=== PATIENT | female | born 1990 | race Caucasian/White ===

== ENCOUNTER 2017-11-05 08:30 | Observation (INO) ==
[2017-11-05 09:00] LABS: Bilirubin,Urine Negative (Negative); Blood,Urine Large (Negative); Clarity,Urine Cloudy (Clear); Color,Urine Yellow (Yellow); Glucose,Urine (UA) Normal (Normal); Ketones,Urine Negative (Negative); Leukocyte Esterase,Urine Moderate (Negative); Nitrite,Urine Negative (Negative); PH,Urine 6.5 pH Units (5.0-8.0); Protein,Urine Negative (Neg-Trace); Specific Gravity,Urine 1.027 (1.010-1.025); Urobilinogen,Urine Normal (Normal)
[2017-11-05 09:02] LABS: Bacteria,Urine Few per hpf (None-Few); Hyaline Casts,Urine None Seen per lpf (None-Few); RBC,Urine TNTC per hpf (0-3); Squamous Epithelial Cell,Urine Many per lpf (None-Few)
[2017-11-05] MEDS ORDERED: *HR* Nalbuphine 20 MG/ML AMPUL IVP ONE (09:16)
[2017-11-05] MEDS ORDERED: Ringers Solution, Lactated 1,000 ML ONE (09:19)
[2017-11-05] MEDS ORDERED: *HR* Nalbuphine 20 MG/ML AMPUL ONE (09:19)
[2017-11-05] MEDS ORDERED: Ringers Solution, Lactated 1,000 ML IVC SCH (09:30)
[2017-11-05 09:45] LABS: Basophils # 0.1 K/mcL (0.0-0.2); Basophils % 0.5 %; Eosinophils # 0.1 K/mcL (0.0-0.6); Eosinophils % 0.7 %; Hemoglobin 12.3 g/dL (11.5-15.4); Immature Granulocytes % 1.5 % (0-4); Lymphocytes # 1.4 K/mcL (0.6-4.6); Lymphocytes % 13.7 %; Mean Corpuscular HGB Conc 34.2 g/dL (31.6-35.5); Mean Corpuscular Hemoglobin 30.5 pg (28.0-33.3); Mean Corpuscular Volume 89.3 fL (83.0-100.0); Mean Platelet Volume 10.6 fL (9.4-12.4); Monocytes # 0.6 K/mcL (0.0-1.3); Monocytes % 5.4 %; Neutrophils # 8.1 K/mcL (1.6-8.9); Platelet Count 188 K/mcL (140-400); Red Blood Count 4.03 M/mcL (3.82-4.97); Segmented Neutrophils % 78.2 %
--- NOTE | 2017-11-05 09:59 | OB/GYN History & Physical ---
Date of Encounter: 11/05/17 Time of Encounter: 09:56 Assessment and Plan (1) Left flank pain Current visit: Yes Status: Acute ultrasound to rule out kidney stone ua (2) 29 weeks gestation of Current visit: Yes Status: Acute admit for observation History of Present Illness Chief complaint: left flank and lower abdominal pain HPI: Ms. Orona is a 27 year old female at 29w2d presents to labor and delivery with complaints of left flank pain and lower abdominal pain that started around 0600. Patient denies contraction, LOF, VB, dysuria, urgency, hematuria or urinary frequency. Patient reports +FM. Patient rated pain 10/10. Past Med Surg Social Fam HX - Past Medical History Source: patient Medical history: no medical history Psychiatric history: depression - Past Surgical History Surgical History: other - Social History Smoking Status: Never smoker Smokeless Tobacco Status: No Alcohol use: none Drug use: none Occupational status: unemployed Current living situation: Home - Independent Activity Level: Independent ambulation Recent Out of Country Travel Within the Last 8 Weeks: No Exposure or Possible Exposure to Illness During Travel: No - Family History Mother Living Status: Still Living Hx Family Endocrine Disorder: Yes (Diabetes) Hx Family Psychosocial Disorders: Yes (schizophrenia, bipolar) Obstetrical History - Pregnancies : 5 Para: 3 Livin Medications and Allergies Vit Calc,Iron,Folic [ Vitamins] 1 each PO 11/05/17 [History] 3 Allergy/AdvReac Type Severity Reaction Status Date / Time No Known Allergies Allergy Verified 05/20/16 08:21 Review of System OB - Constitutional Constitutional ROS IM: no chills, no fever(s), no headache(s) - Cardiovascular Cardiovascular: no chest pain, no edema, no palpitations, no syncope - Respiratory Respiratory: no cough - Gastrointestinal Gastrointestinal: no constipation, no cramping, no diarrhea, no heartburn, no nausea, no vomiting - Genitourinary Genitourinary: flank pain (left side only), no abnormal vaginal bleeding, no difficulty urinating, no dysuria, no hematuria, no urinary frequency, no urinary hesitancy, no urinary incontinence Exam - Constitutional Constitutional: well developed, well nourished, average body habitus - HEENT HEENT: Normocephaly, Mucus Membranes Moist - Neck Neck exam: full ROM, normal inspection, supple - Lungs Respiratory exam: CTAB - Cardiovascular Cardiovascular exam: RRR, +S1, +S2 - Abdomen Abdomen: Present: bowel sounds normal, gravid, non tender - Extremities Extremities exam: full ROM, normal inspection Deep Tendon Reflex Grade: 2+ Normal - Uterus Uterus exam: Present: normal size, normal contour - Anus/Rectum Anus/Rectum: Present: normal perianal skin - Comments Comments: FHr 140 bpm , no contractions noted Results Result Diagrams: 11/05/17 09:30 Abnormal lab results Urine Clarity Cloudy (Clear) A 11/05/17 08:51 Ur Specific [place] 1.027 (1.010-1.025) H 11/05/17 08:51 Urine Blood Large (Negative) H 11/05/17 08:51 Ur Leukocyte Esterase Moderate (Negative) H 11/05/17 08:51 Urine Microscopic RBC TNTC per hpf (0-3) H 11/05/17 08:51 Urine Microscopic WBC 5-15 per hpf (0-3) H 11/05/17 08:51 Ur Squamous Epith Cells Many per lpf (None-Few) H 11/05/17 08:51 All other labs normal. - VTE Reasons for not Prescribing Prophylaxis: Treatment not Indicated - Low risk for VTE
[2017-11-05 10:41] LABS: Amphetamine Screen,Urine Negative ng/mL (Cutoff=1000); Barbiturate Screen,Urine Negative ng/mL (Cutoff=200); Benzodiazepines Screen,Urine Negative ng/mL (Cutoff=200); Cannabinoid Screen,Urine Negative ng/mL (Cutoff = 50); Cocaine Screen,Urine Negative ng/mL (Cutoff= 300); Opiate Screen,Urine Negative ng/mL (Cutoff=300); Phencyclidine Screen,Urine Negative ng/mL (Cutoff=25)
[2017-11-05] MEDS ORDERED: Ondansetron 4 MG/2 ML VIAL IM ONE (11:23)
[2017-11-05] MEDS ORDERED: cefTRIAXone 2,000 MG in Water for inj. (sterile) 20 ML 20 ML IVP ONE (11:43)
[2017-11-05] MEDS ORDERED: *HR* HYDROcodone/Acet 5/325 mg TABLET PO PRN (13:38)
--- NOTE | 2017-11-05 16:17 | Discharge Summary ---
Date of Encounter: 11/05/17 Time of Encounter: 16:16 - Discharge Diagnosis (1) Left flank pain Priority: Secondary Status: Acute Comments: Possible ureteral stone spoke with Dr. Branch who recommends pain management, IF patient is not controlled with pain medication consider MRI and transfer to [facility] Will continue Keflex 100mg po BID x 7 days (2) 29 weeks gestation of Priority: Primary Status: Acute Comments: admitted for observation - Discharge Medications Prescriptions: HYDROcodone/Acet 5/325 mg [[place] 5-325 mg] 1 tab PO Q4HR PRN #15 tablet PRN Reason: Moderate Pain Ondansetron ODT [Zofran ODT] 4 mg SL Q6HR #20 tab.rapdis Cephalexin [Keflex] 1,000 mg PO BID 7 Days #28 capsule Home Medications: Cephalexin [Keflex] 1,000 mg PO BID 7 Days #28 capsule 11/05/17 [Rx] HYDROcodone/Acet 5/325 mg [[place] 5-325 mg] 1 tab PO Q4HR PRN #15 tablet [Rx] Ondansetron ODT [Zofran ODT] 4 mg SL Q6HR #20 tab.rapdis 11/05/17 [Rx] Vit Calc,Iron,Folic [ Vitamins] 1 each PO 11/05/17 [History] Allergies/Adverse Reactions: 3 Allergy/AdvReac Type Severity Reaction Status Date / Time No Known Allergies Allergy Verified 05/20/16 08:21 Data Procedures and tests throughout hospitalization: Laboratory Tests 11/05/17 11/05/17 11/05/17 08:51 08:51 09:30 WBC 10.3 RBC 4.03 Hgb 12.3 Hct 36.0 MCV 89.3 MCH 30.5 MCHC 34.2 RDW 13.0 Plt Count 188 MPV 10.6 Immature Gran % 1.5 Seg Neutrophils % 78.2 Lymphocytes % 13.7 Monocytes % 5.4 Eosinophils % 0.7 Basophils % 0.5 Neutrophils # 8.1 Lymphocytes # 1.4 Monocytes # 0.6 Eosinophils # 0.1 Basophils # 0.1 Urine Color Yellow Urine Clarity Cloudy A Urine pH 6.5 Ur Specific [place] 1.027 H Urine Protein Negative Urine Glucose (UA) Normal Urine Ketones Negative Urine Blood Large H Urine Nitrite Negative Urine Bilirubin Negative Urine Urobilinogen Normal Ur Leukocyte Esterase Moderate H Urine Microscopic RBC TNTC H Urine Microscopic WBC 5-15 H Ur Squamous Epith Cells Many H Urine Bacteria Few Hyaline Casts None Seen Ur Culture Indicated? NO. Urine Opiates Screen Negative Ur Barbiturates Screen Negative Ur Phencyclidine Scrn Negative Ur Amphetamines Screen Negative U Benzodiazepines Scrn Negative Urine Cocaine Screen Negative U Marijuana (THC) Screen Negative Labs on day of discharge: Labs from last 24 hours 11/05/17 11/05/17 11/05/17 09:30 08:51 08:51 WBC 10.3 RBC 4.03 Hgb 12.3 Hct 36.0 MCV 89.3 MCH 30.5 MCHC 34.2 RDW 13.0 Plt Count 188 MPV 10.6 Immature Gran % 1.5 Seg Neutrophils % 78.2 Lymphocytes % 13.7 Monocytes % 5.4 Eosinophils % 0.7 Basophils % 0.5 Neutrophils # 8.1 Lymphocytes # 1.4 Monocytes # 0.6 Eosinophils # 0.1 Basophils # 0.1 Urine Color Yellow Urine Clarity Cloudy A Urine pH 6.5 Ur Specific [place] 1.027 H Urine Protein Negative Urine Glucose (UA) Normal Urine Ketones Negative Urine Blood Large H Urine Nitrite Negative Urine Bilirubin Negative Urine Urobilinogen Normal Ur Leukocyte Esterase Moderate H Urine Microscopic RBC TNTC H Urine Microscopic WBC 5-15 H Ur Squamous Epith Cells Many H Urine Bacteria Few Hyaline Casts None Seen Ur Culture Indicated? NO. Urine Opiates Screen Negative Ur Barbiturates Screen Negative Ur Phencyclidine Scrn Negative Ur Amphetamines Screen Negative U Benzodiazepines Scrn Negative Urine Cocaine Screen Negative U Marijuana (THC) Screen Negative - Impressions ITS Impressions Retroperitoneum Ultrasound 11/05/17 10:15 IMPRESSION: 1. Mild left hydronephrosis. Differential considerations include ureteral stone or hydronephrosis related to . 2. Normal right kidney and bladder. 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 Patient educated on signs and symptoms to report. [facility] report reviewed prior to discharge. Time Attestation: Total time spent providing and/or coordinating discharge services: Time Spent: Less than 30 minutes Exam - Constitutional General appearance IM: A&O X 3, pleasant, answers questions appropriately (FHR) - Other Additional findings: FHR 150bpm appropriate for gestational age - VTE Reasons for not Prescribing Prophylaxis: Treatment not Indicated - Low risk for VTE
== END 2017-11-05 16:36 | disposition home or self-care (01) ==
LOC: 1NENULAB
PROVIDERS: ADMIT Obstetrics & Gynecology; ATTEND Obstetrics & Gynecology

== ENCOUNTER 2022-05-26 07:59 | Inpatient (IN) ==
[2022-05-26] MEDS ORDERED: Naloxone 0.4 MG/ML INJ IVP PRN (08:12)
[2022-05-26] MEDS ORDERED: Famotidine 20 MG/2 ML VIAL IVP PRN (08:12)
[2022-05-26] MEDS ORDERED: Metoclopramide 10 MG/2 ML VIAL IVP PRN (08:12)
[2022-05-26] MEDS ORDERED: miSOPROStoL 25 MCG TABLET PO PRN (08:14)
[2022-05-26] MEDS ORDERED: Ringers Solution, Lactated 1,000 ML ONE (09:05)
[2022-05-26] MEDS ORDERED: Ringers Solution, Lactated 500 ML IVC ONE (09:11)
[2022-05-26] MEDS ORDERED: Ringers Solution, Lactated 1,000 ML IVC SCH (09:15)
[2022-05-26] MEDS ORDERED: Oxytocin 30 UNIT/503 ML BAG IVC SCH (09:15)
[2022-05-26 09:45] LABS: Basophils % 0.5 %; Eosinophils # 0.2 K/mcL (0.0-0.6); Eosinophils % 1.7 %; Hematocrit 37.2 % (35.3-44.9); Hemoglobin 12.9 g/dL (11.5-15.4); Immature Granulocytes % 0.9 % (0-4); Lymphocytes # 2.1 K/mcL (0.6-4.6); Lymphocytes % 23.6 %; Mean Corpuscular HGB Conc 34.7 g/dL (31.6-35.5); Mean Corpuscular Hemoglobin 31.1 pg (28.0-33.3); Mean Corpuscular Volume 89.6 fL (83.0-100.0); Mean Platelet Volume 11.5 fL (9.4-12.4); Monocytes # 0.7 K/mcL (0.0-1.3); Monocytes % 8.3 %; Neutrophils # 5.7 K/mcL (1.6-8.9); Platelet Count 168 K/mcL (140-400); Red Blood Count 4.15 M/mcL (3.82-4.97); Red Cell Distribution Width 12.7 % (11.5-14.5); White Blood Count 8.7 K/mcL (4.3-11.1)
[2022-05-26 11:38] LABS: Amphetamine Screen,Urine Negative ng/mL (Cutoff=1000); Barbiturate Screen,Urine Negative ng/mL (Cutoff=200); Benzodiazepines Screen,Urine Negative ng/mL (Cutoff=200); Cannabinoid Screen,Urine Negative ng/mL (Cutoff = 50); Cocaine Screen,Urine Negative ng/mL (Cutoff= 300); Opiate Screen,Urine Negative ng/mL (Cutoff=300); Phencyclidine Screen,Urine Negative ng/mL (Cutoff=25)
[2022-05-26] MEDS ORDERED: *HR* Nalbuphine 10 MG/ML AMPUL IV PRN (13:01)
[2022-05-26] MEDS: Oxytocin 30 UNIT/503 ML BAG IVC SCH ×2 (14:18→18:50)
[2022-05-26] MEDS ORDERED: Ibuprofen 600 MG TABLET PO ONE (14:45)
[2022-05-26] MEDS ORDERED: Measles/Mumps/Rubella Vacc 0.5 ML VIAL SQ PRN (16:05)
[2022-05-26] MEDS ORDERED: Rho Immune Globulin 1,500 UNIT SYRINGE IM PRN (16:05)
[2022-05-26] MEDS ORDERED: Benzocaine/Menthol 56 GM AEROSOL SPRAY TP PRN (16:05)
[2022-05-26] MEDS ORDERED: Lanolin 7 G OINT...G. TP PRN (16:05)
[2022-05-26] MEDS ORDERED: Ondansetron ODT 4 MG TAB.RAPDIS SL PRN (16:05)
[2022-05-26] MEDS: Acetaminophen 325 MG TABLET PO SCH (20:11)
[2022-05-27] MEDS: Ibuprofen 600 MG TABLET PO SCH ×3 (02:55→15:03)
[2022-05-27] MEDS: Acetaminophen 325 MG TABLET PO SCH ×3 (02:55→15:03)
[2022-05-27 03:08] VITALS: O2SAT 97
[2022-05-27 04:34] LABS: Basophils % 0.3 %; Eosinophils # 0.2 K/mcL (0.0-0.6); Eosinophils % 1.4 %; Hematocrit 34.8 % (35.3-44.9); Hemoglobin 11.7 g/dL (11.5-15.4); Immature Granulocytes % 0.9 % (0-4); Lymphocytes # 2.9 K/mcL (0.6-4.6); Lymphocytes % 25.6 %; Mean Corpuscular HGB Conc 33.6 g/dL (31.6-35.5); Mean Corpuscular Hemoglobin 30.2 pg (28.0-33.3); Mean Corpuscular Volume 89.9 fL (83.0-100.0); Mean Platelet Volume 11.6 fL (9.4-12.4); Monocytes # 0.9 K/mcL (0.0-1.3); Monocytes % 7.7 %; Neutrophils # 7.4 K/mcL (1.6-8.9); Platelet Count 177 K/mcL (140-400); Red Blood Count 3.87 M/mcL (3.82-4.97); Red Cell Distribution Width 12.7 % (11.5-14.5); Segmented Neutrophils % 64.1 %; White Blood Count 11.5 K/mcL (4.3-11.1)
[2022-05-27 07:24] VITALS: BP 117/77; PULSE 67; TEMP 97.9
[2022-05-27] MEDS ORDERED: Prenatal Vit/FA 1 EACH TABLET PO SCH (09:00)
== END 2022-05-27 15:30 | disposition home or self-care (01) | DRG 560 ==
LOC: 1NENULAB 07:59 → 1NENUOBS 16:43
PROVIDERS: ADMIT Obstetrics & Gynecology; ATTEND Obstetrics & Gynecology